=== PATIENT | female | born 1970 | race Caucasian/White ===

== ENCOUNTER 2024-04-15 17:00 | Emergency (ER) | payer MEDICAID ==
[2024-04-15 17:10] VITALS: TEMP 97.2
--- NOTE | 2024-04-15 17:32 | ERPHSYRPT ---
- History of Present Illness Time Seen by Provider: 04/15/24 17:08 Historian: patient Exam Limitations: no limitations Patient Subjective Stated Complaint: Pt states "I had chest pain last night and it went away and came back today." Triage Nursing Assessment: PT presented alert and oriented X 3, skin wpd. PT ambulates with an upright steady gait, able to speak in clear full sentences. Pt resting comfortably on the bed. PT slightly anxious. Physician History: 53 years old female with history of stroke with some right-sided residual weakness, DVT not anticoagulated for the last 8 years, no history of coronary artery disease or cardiac workup presented in the ER with complaint of left- sided chest discomfort since 4 PM. Patient described this as a dull aching sensation without palpitation or shortness of breath and no significant aggravating or relieving factors. No radiation of symptoms no fever chills or cough reported. Reports having similar symptoms last night as well. Prior Chest Pain/Cardiac Workup: no prior chest pain, no prior cardiac workup Nitro Today/Relief: no nitro taken today Aspirin Treatment Today: no aspirin today Allergies/Adverse Reactions: No Known Drug Allergies Allergy (Verified 04/15/24 17:10) Home Medications: No Reportable Medications [No Reported Medications] 04/15/24 [History] Hx Tetanus, Diphtheria Vaccination/Date Given: Yes Hx Influenza Vaccination/Date Given: No Hx Pneumococcal Vaccination/Date Given: No Immunizations Up to Date: No Travel Risk - International Travel Have you traveled outside of the country in past 3 weeks: No - Emerging Infectious Disease Are you exhibiting symptoms associated with any current EIDs: No - Review of Systems Constitutional: No Symptoms Eyes: No Symptoms Ears, Nose, & Throat: No Symptoms Respiratory: No Symptoms Cardiac: Chest Pain Abdominal/Gastrointestinal: No Symptoms Genitourinary Symptoms: No Symptoms Musculoskeletal: No Symptoms Skin: No Symptoms Neurological: Other Endocrine: No Symptoms Immunological/Allergic: No Symptoms - Past Medical History Pertinent Past Medical History: Yes Neurological History: Stroke ENT History: No Pertinent History Cardiac History: No Pertinent History Respiratory History: Asthma Endocrine Medical History: No Pertinent History Musculoskeletal History: No Pertinent History GI Medical History: No Pertinent History History: No Pertinent History Psycho-Social History: No Pertinent History Female Reproductive Disorders: No Pertinent History - Past Surgical History Past Surgical History: Yes Gastrointestinal: Cholecystectomy Female Surgical History: Hysterectomy Other Surgical History: pedicul fusion. hernia repair. cesarian - Female History Hx Last Menstrual Period: hysterectomy Hx Now: No - Social History Smoking Status: Former smoker Exposure to second hand smoke: No Drug Use: none - Social Determinants of Health Will the patient participate in the screening: Yes Do you worry about a steady place to live?: No Do you have any problems with any of the following?: No known problems In the past 12 months,have you had to go without utilities?: No Transportation Issues: No Has anyone in your support network made you feel unsafe?: No Have you or anyone in your house had to go without enough: No - Nursing Vital Signs Nursing Vital Signs: Initial Vital Signs Temperature 97.2 F 04/15/24 17:02 Pulse Rate 79 04/15/24 17:02 Respiratory Rate 20 04/15/24 17:02 Blood Pressure 122/99 04/15/24 17:02 O2 Sat by Pulse Oximetry 95 04/15/24 17:02 Pain Scale Pain Intensity 4 - Physical Exam General Appearance: no apparent distress, alert Eye Exam: PERRL/EOMI Ears, Nose, Throat Exam: normal ENT inspection Neck Exam: normal inspection, supple, full range of motion Respiratory Exam: normal breath sounds, lungs clear Cardiovascular Exam: regular rate/rhythm, normal heart sounds Gastrointestinal/Abdomen Exam: soft, normal bowel sounds, tenderness Back Exam: normal inspection, normal range of motion Extremity Exam: normal inspection, normal range of motion Neurologic Exam: alert, oriented x 3, cooperative, natural resource officer II-XII nml as tested Skin Exam: normal color SpO2 Interpretation: normal SpO2: 95 O2 Delivery: Room Air - Course EKG Interpreted by Me: RATE (79), Sinus Rhythm, NORMAL AXIS, NORMAL INTERVALS, Non-specific ST Changes, Other (Specific T wave changes) Ordered Tests: Active Orders 24 hr Category Date Time Status Natural Resource Specialist STAT Care 04/15/24 17:30 Completed EKG-ER Only STAT Care 04/15/24 17:29 Completed IV Insertion STAT Care 04/15/24 17:29 Completed CHEST 1 VIEW (PORTABLE) Stat Exams 04/15/24 17:29 Completed CBC W DIFF Stat Lab 04/15/24 17:20 Completed CMP Stat Lab 04/15/24 17:20 Completed D-DIMER QUANTITATIVE Stat Lab 04/15/24 17:20 Completed NT PRO BNPII Stat Lab 04/15/24 17:20 Completed TROPONIN Q4H Lab 04/15/24 17:20 Completed TROPONIN Q4H Lab 04/15/24 21:00 Completed Medication Summary Discontinued Medications Generic Name Dose Route Start Last Admin Trade Name Joann PRN Reason Stop Dose Admin Aspirin 324 mg 04/15/24 17:29 04/15/24 17:36 Aspirin 81 Mg Tab.Chew PO 04/15/24 17:30 324 mg STAT ONE Administration Aspirin Confirm 04/15/24 17:35 Aspirin 81 Mg Tab.Chew Administered 04/15/24 17:36 Dose 324 mg .ROUTE .STK-MED ONE Lab/Rad Data: Laboratory Result Diagrams 04/15/24 17:20 04/15/24 17:20 Laboratory Results 04/15/24 04/15/24 04/15/24 Range/Units 21:00 17:20 17:20 WBC (3.98-10.04) x10^3/uL RBC (3.93-5.22) x10^6/uL Hgb (11.2-15.7) g/dL Hct (34.1-44.9) % MCV (79.4-94.8) fL MCH (25.6-32.2) pg MCHC (32.2-35.5) g/dL RDW (11.7-14.4) % Plt Count (182-369) x10^3/uL MPV (9.4-12.3) fL Gran % (34.0-71.1) % Immature Gran % (Auto) (0.001-0.429) % Nucleat RBC Rel Count (0.00-0.2) % Eos # (Auto) (0.04-0.36) x10^3/uL Immature Gran # (Auto) (0.001-0.031) x10^3u/L Absolute Lymphs (auto) (1.18-3.74) x10^3/uL Absolute Monos (auto) (0.24-0.86) x10^3/uL Absolute Nucleated RBC (0.00-0.012) x10^3u/L Lymphocytes % (19.3-51.7) % Monocytes % (4.7-12.5) % Eosinophils % (0.7-5.8) % Basophils % (0.1-1.2) % Absolute Granulocytes (1.56-6.13) x10^3/uL Basophils # (0.01-0.08) x10^3/uL D-Dimer 0.24 (0.0-0.50) mg/L Sodium (135-145) mmol/L Potassium (3.5-5.1) mmol/L Chloride (98-107) mmol/L Carbon Dioxide (22-30) mmol/L Anion Gap (5-15) MEQ/L BUN (7-17) mg/dL Creatinine (0.52-1.04) mg/dL Estimated GFR ML/MIN Glucose (74-106) mg/dL Calcium (8.4-10.2) mg/dL Total Bilirubin (0.2-1.3) mg/dL AST (14-36) U/L ALT (0-35) U/L Alkaline Phosphatase (38-126) U/L Troponin I < 0.012 < 0.012 (0.000-0.033) ng/mL NT-Pro-B Natriuret Pep (<300) pg/mL Serum Total Protein (6.3-8.2) g/dL Albumin (3.5-5.0) g/dL 04/15/24 04/15/24 Range/Units 17:20 17:20 WBC 9.1 (3.98-10.04) x10^3/uL RBC 4.19 (3.93-5.22) x10^6/uL Hgb 13.3 (11.2-15.7) g/dL Hct 38.7 (34.1-44.9) % MCV 92.4 (79.4-94.8) fL MCH 31.7 (25.6-32.2) pg MCHC 34.4 (32.2-35.5) g/dL RDW 12.7 (11.7-14.4) % Plt Count 257 (182-369) x10^3/uL MPV 12.1 (9.4-12.3) fL Gran % 55.4 (34.0-71.1) % Immature Gran % (Auto) 0.3 (0.001-0.429) % Nucleat RBC Rel Count 0.0 (0.00-0.2) % Eos # (Auto) 0.07 (0.04-0.36) x10^3/uL Immature Gran # (Auto) 0.03 (0.001-0.031) x10^3u/L Absolute Lymphs (auto) 3.21 (1.18-3.74) x10^3/uL Absolute Monos (auto) 0.70 (0.24-0.86) x10^3/uL Absolute Nucleated RBC 0.00 (0.00-0.012) x10^3u/L Lymphocytes % 35.3 (19.3-51.7) % Monocytes % 7.7 (4.7-12.5) % Eosinophils % 0.8 (0.7-5.8) % Basophils % 0.5 (0.1-1.2) % Absolute Granulocytes 5.04 (1.56-6.13) x10^3/uL Basophils # 0.05 (0.01-0.08) x10^3/uL D-Dimer (0.0-0.50) mg/L Sodium 140 (135-145) mmol/L Potassium 4.1 (3.5-5.1) mmol/L Chloride 106 (98-107) mmol/L Carbon Dioxide 24 (22-30) mmol/L Anion Gap 13.7 (5-15) MEQ/L BUN 20 H (7-17) mg/dL Creatinine 0.75 (0.52-1.04) mg/dL Estimated GFR 95.7 ML/MIN Glucose 107 H (74-106) mg/dL Calcium 9.5 (8.4-10.2) mg/dL Total Bilirubin 0.40 (0.2-1.3) mg/dL AST 37 H (14-36) U/L ALT 47 H (0-35) U/L Alkaline Phosphatase 73 (38-126) U/L Troponin I (0.000-0.033) ng/mL NT-Pro-B Natriuret Pep < 11.5 (<300) pg/mL Serum Total Protein 6.9 (6.3-8.2) g/dL Albumin 4.4 (3.5-5.0) g/dL - Progress Progress: improved, re-examined Air Movement: good Progress Note: 04/15/24 21:57 53 years old is evaluated in the ER for left-sided chest pain. EKG is normal sinus rhythm with no acute ischemic changes. She is given aspirin. Does not want anything for pain. On reevaluation her pain is resolved. No shortness of breath. Negative D-dimer. Troponins negative x 2. Chest x-ray negative for any acute cardiopulmonary findings reviewed by me followed by official read. Normal white count, fairly unremarkable chemistries. Patient is a low heart score, do not think needs to be admitted. I would refer her outpatient cardiology follow-up. Discussed signs symptoms of worsening needing return to ER which she seems understanding. Stable for discharge. Blood Culture(s) Obtained: No Antibiotics given: No Counseled pt/family regarding: lab results, diagnosis, need for follow-up, rad results Medical Desision Making - Diagnostic Testing Diagnostic test were ordered, analyzed, and reviewed by me: Yes Radiological Interpretation: Interpreted by me, Reviewed by me - Risk of complications The pt has a mod risk of morbidity or mortality based on: Need for prescription drug management - Departure Departure Disposition: Home Clinical Impression: Atypical chest pain Condition: Stable Critical Care Time: No Referrals: JOSH WALLS NP [Primary Care Provider] - Follow up with PCP 1 day KYE VELEZ [CONSULTING PHYSICIAN] - Follow up/PCP as directed (Call for appointment for reevaluation.) Instructions: Angina (DC), Chest Pain (DC) Additional Instructions: Take Tylenol/ibuprofen as needed. Follow-up with primary care and cardiology for reevaluation. Return to ER for worsening chest pain or if having palpitation/shortness of breath etc.
[2024-04-15] MEDS ORDERED: BABY ASPIRIN 81 MG CHEW ONE (17:35)
[2024-04-15 17:36] LABS: Absolute Neutrophil Ct (ANC) 5.04 x10^3/uL (1.56-6.13); BASOPHIL % 0.5 % (0.1-1.2); Basophil (Absolute #) 0.05 x10^3/uL (0.01-0.08); Eosinophil % 0.8 % (0.7-5.8); Eosinophil (Absolute #) 0.07 x10^3/uL (0.04-0.36); Hematocrit 38.7 % (34.1-44.9); Hemoglobin 13.3 g/dL (11.2-15.7); IMMATURE GRAN # 0.03 x10^3u/L (0.001-0.031); IMMATURE GRAN % 0.3 % (0.001-0.429); Lymphocyte (Absolute #) 3.21 x10^3/uL (1.18-3.74); Lymphocytes % 35.3 % (19.3-51.7); Mean Cell Volume 92.4 fL (79.4-94.8); Mean Corpuscular Hemoglobin 31.7 pg (25.6-32.2); Mean Corpuscular Hgb Concent. 34.4 g/dL (32.2-35.5); Mean Platelet Volume 12.1 fL (9.4-12.3); Monocytes % 7.7 % (4.7-12.5); Neutrophil % 55.4 % (34.0-71.1); Platelet Count 257 x10^3/uL (182-369); Red Blood Count 4.19 x10^6/uL (3.93-5.22); Red Cell Distribution Width 12.7 % (11.7-14.4); White Blood Count 9.1 x10^3/uL (3.98-10.04)
[2024-04-15] MEDS: BABY ASPIRIN 81 MG CHEW PO ONE (17:36)
[2024-04-15 17:59] LABS: ALBUMIN 4.4 g/dL (3.5-5.0); ALKALINE PHOSPHATASE 73 U/L (38-126); ANION GAP 13.7 MEQ/L (5-15); BLOOD UREA NITROGEN 20 mg/dL (7-17); CHLORIDE 106 mmol/L (98-107); Calcium 9.5 mg/dL (8.4-10.2); Carbon Dioxide 24 mmol/L (22-30); Creatinine 1 0.75 mg/dL (0.52-1.04); EST GLOMERULAR FILTRATION RATE 95.7 ML/MIN; Glucose 107 mg/dL (74-106); NT PRO BNPII < 11.5 pg/mL (<300); Potassium 4.1 mmol/L (3.5-5.1); SGOT/AST 37 U/L (14-36); SGPT/ALT 47 U/L (0-35); SODIUM 140 mmol/L (135-145); Total Protein 6.9 g/dL (6.3-8.2)
--- NOTE | 2024-04-15 21:03 | XRAY ---
Indication: Chest pain. Comparison: None Portable apical lordotic chest demonstrates normal heart, lungs, and bony thorax.
[2024-04-15 22:00] VITALS: O2SAT 95
[2024-04-15 22:04] VITALS: BP 113/76; PULSE 82; RESP 18
== END 2024-04-15 22:07 | disposition home or self-care (01) ==
LOC: ED 17:00
DX: R07.9 Chest pain, unspecified (principal); F41.9 Anxiety disorder, unspecified; Z86.73 Personal history of transient ischemic attack (TIA), and cerebral infarction without residual deficits
CPT/HCPCS: 36000; 36415; 71045; 80053; 83880; 84484; 85025; 85379; 93005; 93041; 99284; A9270-GY